=== PATIENT | female | born 1980 | race Two or more races ===

== ENCOUNTER 2022-01-05 21:36 | Emergency (ER) | payer BC, OTHER ==
[~2022-01-05] VITALS: Ht 165.1 cm; Wt 99.8 kg
--- NOTE | 2022-01-05 22:15 | NUR ---
[id number] FROM WORK C/O HIGH BP AND DIDNT TAKE MEDS. PATIENT IS AAOX4. ABLE TO MAKE NEEDS KNOWN. ATTACHED TO MONITOR. VITALS CHECKED.
--- NOTE | 2022-01-05 22:55 | NUR ---
URINE SPECIMEN SENT TO LAB
--- NOTE | 2022-01-05 23:00 | NUR ---
BLOOD DRAWN AND SENT TO LAB
[2022-01-05 23:22] LABS: BILIRUBIN,URINE NEGATIVE (NEGATIVE); COLOR,URINE DARK YELLOW (YELLOW); LEUKOCYTE ESTERASE ,URINE 1+ (NEGATIVE); NITRITE, URINE NEGATIVE (NEGATIVE); PROTEIN,URINE 1+ mg/dl (NEGATIVE); UGLUCOSE NEGATIVE (NEGATIVE); UROBILINOGEN,URINE 0.2 EU/dL (0.2)
[2022-01-05 23:24] LABS: BASOPHILS % (AUTO) 0.4 % (0.0-2.0); EOSINOPHILS % (AUTO) 1.1 % (0.0-6.0); HEMATOCRIT 34 % (33-45); HEMOGLOBIN 11.3 g/dL (11.5-14.8); LYMPHOCYTES # (AUTO) 2.3 K/uL (0.8-4.8); LYMPHOCYTES % (AUTO) 24.5 % (20.0-44.0); MEAN CORPUSCULAR HGB CONC 33 g/dl (31.0-36.0); MEAN CORPUSCULAR VOLUME 83 fL (82-100); MONOCYTES # (AUTO) 0.5 K/uL (0.1-1.30); MONOCYTES % (AUTO) 5.5 % (2.0-12.0); NEUTROPHILS # (AUTO) 6.4 K/uL (1.8-8.9); NEUTROPHILS % (AUTO) 68.5 % (43.0-81.0); PLATELET COUNT (AUTO) 402 K/uL (150-450); RED BLOOD CELL COUNT(AUTO) 4.14 MIL/uL (4.0-5.2); WHITE BLOOD COUNT (AUTO) 9.4 K/uL (4.3-11.0)
[2022-01-05 23:25] LABS: BACTERIA,URINE Few /HPF (None Seen); RBC,URINE TOO NUMEROUS TO COUN /HPF (0-2); SQUAMOUS EPITHELIAL CELL,UR Few /HPF (None Seen)
[2022-01-05 23:32] LABS: CALCIUM, SERUM 8.2 mg/dL (8.5-10.1); CARBON DIOXIDE 26 mmol/L (21-32); CHLORIDE 100 mmol/L (98-107); CREATININE 0.6 mg/dL (0.6-1.3); GLUCOSE 154 mg/dL (74-106); POTASSIUM 3.7 mmol/L (3.5-5.1); SODIUM SERUM 135 mmol/L (136-145); UREA NITROGEN, BLOOD 10 mg/dL (7-18)
[2022-01-06] MEDS ORDERED: LORAZEPAM 1 MG TABLET ONE (02:56)
--- NOTE | 2022-01-06 02:58 | NUR ---
TO GIVE LORAZEPAM TO PATIENT BUT SHE REFUSED TO TAKE IT COZ SHE CLAIMED SHE HAS A BAD REACTION TO MEDICINE. SHE SAID SHE GO CRAZY IF SHE TAKES THIS MEDICINE. DR VILLANUEVA MADE AWARE
[2022-01-06] MEDS ORDERED: LORAZEPAM 1 MG TABLET PO ONE (03:00)
[2022-01-06] MEDS ORDERED: hydrOXYzine PAMOATE 25 MG CAPSULE PO ONE (03:00)
[2022-01-06] MEDS ORDERED: hydrOXYzine PAMOATE 25 MG CAPSULE ONE (03:06)
--- NOTE | 2022-01-06 03:28 | NUR ---
Patient discharged to home in stable condition. Written and verbal after care instructions given. Patient verbalizes understanding of instruction.
[2022-01-06 03:31] VITALS: BP 166/107
== END 2022-01-06 03:32 | disposition home or self-care (01) ==
LOC: ER 21:39
DX: R42 Dizziness and giddiness (principal); I10 Essential (primary) hypertension; E11.9 Type 2 diabetes mellitus without complications; Z60.2 Problems related to living alone
CPT/HCPCS: 99284; 93005; 85025; 80048; 87086; 84703; 81001; 36415; 84484; Q0177

== ENCOUNTER 2022-02-02 00:17 | Emergency (ER) | payer BC, OTHER ==
[~2022-02-02] VITALS: Ht 165.1 cm; Wt 99.8 kg
--- NOTE | 2022-02-02 00:50 | NUR ---
TO ER BED 2. BIBSELF C/O HIGH BP TONIGHT WHILE AT WORK. HX HTN. UNABLE TO CONTROL BP WITH MEDS AT HOME. PT IS ALERT AND ORIENTED. RR EVEN AND NON LABORED. CONNECTED TO MONITOR. AWAITING MD HIGGINS
[2022-02-02] MEDS ORDERED: HYDROCHLOROTHIAZIDE 25 MG TABLET ONE (01:17)
[2022-02-02] MEDS ORDERED: HYDROCHLOROTHIAZIDE 25 MG TABLET PO ONE (01:30)
[2022-02-02] MEDS ORDERED: CLONIDINE HCL 0.1 MG TABLET ONE (02:58)
[2022-02-02] MEDS ORDERED: CLONIDINE HCL 0.1 MG TABLET PO ONE (03:00)
[2022-02-02] MEDS ORDERED: NICO-762 TP ×2 (03:15→03:59)
[2022-02-02] MEDS ORDERED: HYDR25TA4 PO ×2 (03:15→03:59)
[2022-02-02] MEDS ORDERED: NICO4LOZ BC ×2 (03:15→03:59)
[2022-02-02 03:59] VITALS: BP 147/92
--- NOTE | 2022-02-02 03:59 | NUR ---
Patient discharged to home in stable condition. Written and verbal after care instructions given. Patient verbalizes understanding of instruction.
== END 2022-02-02 04:00 | disposition home or self-care (01) ==
LOC: ER 00:18
DX: I10 Essential (primary) hypertension (principal); E11.9 Type 2 diabetes mellitus without complications; Z60.2 Problems related to living alone; Z79.899 Other long term (current) drug therapy

== ENCOUNTER 2022-02-27 03:05 | Emergency (ER) | payer OTHER ==
[~2022-02-27] VITALS: Ht 154.9 cm; Wt 97.1 kg
[~2022-02-27 03:05] MED LIST: HYDR25TA4 PO; NICO-762 TP; NICO4LOZ BC
--- NOTE | 2022-02-27 03:10 | NUR ---
BIBS. FROM WORK C/O L CHEST PAIN SHARP [id number] SHARP INTERMITENT NON RADIATING. PT A/OX4. TOLERATING R/A WELL WITH NO RESP DISTRESS. CONNECTED PT TO POX AND MONITOR. SAFETY MEASURES IN PLACE.
--- NOTE | 2022-02-27 03:26 | NUR ---
DR. HAYES LEE AT PT'S BEDSIDE FOR EVAL
[2022-02-27] MEDS ORDERED: ASPIRIN 325 MG TABLET PO ONE (03:30)
[2022-02-27] MEDS ORDERED: ASPIRIN 325 MG TABLET ONE (03:36)
--- NOTE | 2022-02-27 03:50 | NUR ---
LAC #18G S/L BLOOD COLLECTED AND SENT TO LAB
[2022-02-27 04:01] LABS: BASOPHILS # (AUTO) 0.1 K/uL (0.0-0.2); BASOPHILS % (AUTO) 0.7 % (0.0-2.0); EOSINOPHILS % (AUTO) 1.6 % (0.0-6.0); HEMATOCRIT 35 % (33-45); HEMOGLOBIN 11.4 g/dL (11.5-14.8); LYMPHOCYTES # (AUTO) 3.1 K/uL (0.8-4.8); MEAN CORPUSCULAR HGB CONC 33 g/dl (31.0-36.0); MEAN CORPUSCULAR VOLUME 82 fL (82-100); MONOCYTES # (AUTO) 0.5 K/uL (0.1-1.30); MONOCYTES % (AUTO) 4.8 % (2.0-12.0); NEUTROPHILS # (AUTO) 6.7 K/uL (1.8-8.9); NEUTROPHILS % (AUTO) 63.9 % (43.0-81.0); PLATELET COUNT (AUTO) 358 K/uL (150-450); RED BLOOD CELL COUNT(AUTO) 4.29 MIL/uL (4.0-5.2); WHITE BLOOD COUNT (AUTO) 10.5 K/uL (4.3-11.0)
--- NOTE | 2022-02-27 04:15 | NUR ---
PT SIGNED WAIVER FORM; VERBALIZED UNDERSTANDING
[2022-02-27 04:21] LABS: D-DIMER 0.19 mg/L(FEU (0.17-0.50)
--- NOTE | 2022-02-27 04:37 | NUR ---
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
[2022-02-27 04:45] LABS: ALANINE AMINOTRANSFERASE 104 U/L (12-78); ALKALINE PHOSPHATASE 77 U/L (46-116); ASPARTATE AMINOTRANSFERASE 52 U/L (15-37); BILIRUBIN,DIRECT 0.1 mg/dL (0.0-0.2); BILIRUBIN,TOTAL 0.3 mg/dL (0.2-1.0); CALCIUM, SERUM 8.8 mg/dL (8.5-10.1); CARBON DIOXIDE 28 mmol/L (21-32); CHLORIDE 95 mmol/L (98-107); CREATININE 0.7 mg/dL (0.6-1.3); GLUCOSE 133 mg/dL (74-106); POTASSIUM 2.9 mmol/L (3.5-5.1); SODIUM SERUM 134 mmol/L (136-145); TOTAL PROTEIN, SERUM 8.2 g/dL (6.4-8.2); UREA NITROGEN, BLOOD 8 mg/dL (7-18)
--- NOTE | 2022-02-27 05:42 | NUR ---
BLOOD COLLECTED FOR TROPONIN AND SENT TO LAB
--- NOTE | 2022-02-27 06:42 | NUR ---
CALLED [facility] - XRAY IMAGE TO BE ASSIGNED TO RADIOLOGIST WITHIN 30 MINUTES.
--- NOTE | 2022-02-27 08:00 | NUR ---
PT AWAKE AND VERBALLY RESPONSIVE, NOT IN ACUTE DISTRESS. BREAKFAST TRAY PROVIDED, PIPPA WELL.
--- NOTE | 2022-02-27 08:47 | NUR ---
CALLED RADIOLOGY FOR FOLLOW UP ON XRAY RESULT.
--- NOTE | 2022-02-27 09:55 | NUR ---
IV removed. Catheter intact and site benign. Pressure and 4x4 applied to site. No bleeding noted.
[2022-02-27 10:01] VITALS: BP 146/90
--- NOTE | 2022-02-27 10:03 | NUR ---
Patient discharged to home in stable condition. Written and verbal after care instructions given. Patient verbalizes understanding of instruction.
[2022-02-28] MEDS ORDERED: clonazePAM 0.5 MG TABLET ONE (14:01)
[2022-02-28] MEDS ORDERED: AMLODIPINE BESYLATE 5 MG TABLET ONE (14:02)
[2022-02-28] MEDS ORDERED: AMLO-212 PO (14:12)
[2022-02-28] MEDS ORDERED: CLON0.5T4 PO (14:12)
== END 2022-02-27 10:06 | disposition home or self-care (01) ==
LOC: ER 03:08
DX: R07.9 Chest pain, unspecified (principal); I10 Essential (primary) hypertension; E11.9 Type 2 diabetes mellitus without complications; F17.200 Nicotine dependence, unspecified, uncomplicated; Z79.899 Other long term (current) drug therapy
CPT/HCPCS: 36415; 71045-TC; 80048-TC; 80076-TC; 84484-TC; 85025-TC; 85378-TC; 85730-TC

== ENCOUNTER 2022-02-28 12:46 | Emergency (ER) | payer OTHER ==
[~2022-02-28] VITALS: Ht 154.9 cm; Wt 98.4 kg
--- NOTE | 2022-02-28 13:30 | NUR ---
Reclining in bed NO obvious distress. NO acute changes. Status quo. Aware of plan of care
[2022-02-28] MEDS ORDERED: clonazePAM 1 MG TABLET PO ONE (14:00)
[2022-02-28] MEDS ORDERED: AMLODIPINE BESYLATE 5 MG TABLET PO ONE (14:00)
[2022-02-28] MEDS ORDERED: AMLO-212 PO (14:12)
[2022-02-28] MEDS ORDERED: CLON0.5T4 PO (14:12)
--- NOTE | 2022-02-28 14:28 | NUR ---
Patient discharged to home in stable condition. Written and verbal after care instructions given. Patient verbalizes understanding of instruction.
[2022-02-28 14:29] VITALS: BP 165/89
== END 2022-02-28 14:30 | disposition home or self-care (01) ==
LOC: ER 12:47
DX: I10 Essential (primary) hypertension (principal); F41.9 Anxiety disorder, unspecified; F17.210 Nicotine dependence, cigarettes, uncomplicated; E11.9 Type 2 diabetes mellitus without complications; Z79.899 Other long term (current) drug therapy